=== PATIENT | female | born 1950 ===

== ENCOUNTER 2016-06-01 19:55 | Emergency (ER) | payer OTHER ==
[2016-06-01] MEDS ORDERED: hydrOXYzine HCL TAB* 25 MG PO ONE (20:50)
--- NOTE | 2016-06-01 20:56 | UC ---
Skin Complaint HPI - HPI Summary HPI Summary: patient arrived from out of town today. noticed a itchy spot on leg this morning. now she has elevated red spots on both legs, itchy. did use anti itch creaem with positive results. - History of Current Complaint Chief Complaint: UCSkin Time Seen by Provider: 06/01/16 20:43 Stated Complaint: RASH Hx Obtained From: Patient ?: No Onset/Duration: Sudden Onset, Lasting Days Skin Exposure Onset/Duration: Hours Ago Onset Severity: Moderate Current Severity: Moderate Location: Diffuse - both legs Character: Swelling, Pruritus, Redness, Raised Aggravating: Nothing Alleviating: OTC Creams/Salves Associated Signs & Symptoms: Positive: Negative - Allergy/Home Medications Allergies/Adverse Reactions: Allergies Allergy/AdvReac Type Severity Reaction Status Date / Time No Known Allergies Allergy Verified 06/01/16 20:30 Home Medications: Home Medications Alendronate (NF) [Fosamax (NF)] 1 tab PO WEEKLY 06/01/16 [History Confirmed ] Cholecalciferol [Vitamin D] 4,000 mg PO WEEKLY 06/01/16 [History Confirmed 06/01] Review of Systems Constitutional: Negative Skin: Rash Eyes: Negative ENT: Negative Respiratory: Negative Cardiovascular: Negative Gastrointestinal: Negative Genitourinary: Negative Motor: Negative Neurovascular: Negative Musculoskeletal: Negative Neurological: Negative Psychological: Negative All Other Systems Reviewed And Are Negative: Yes PMH/Surg Hx/FS Hx/Imm Hx Previously Healthy: Yes - Surgical History Surgical History: Yes Surgery Procedure, Year, and Place: Hysterectomy - Family History Known Family History: Positive: Hypertension - Social History Alcohol Use: Rare Substance Use Type: None Smoking Status (MU): Never Smoked Tobacco - Immunization History Most Recent Influenza Vaccination: Physical Exam Triage Information Reviewed: Yes Appearance: Well-Appearing, Well-Nourished, Pain Distress Vital Signs: Initial Vital Signs Temp 98.7 F 06/01/16 20:31 Pulse 75 06/01/16 20:31 Resp 18 06/01/16 20:31 BP 123/59 06/01/16 20:31 Pulse Ox 96 06/01/16 20:31 Vital Signs Reviewed: Yes Eye Exam: Normal Eyes: Positive: Conjunctiva Clear ENT Exam: Normal ENT: Positive: Normal ENT inspection, Hearing grossly normal, Pharynx normal, TMs normal Dental Exam: Normal Neck exam: Normal Neck: Positive: Supple, Nontender, No Lymphadenopathy Respiratory Exam: Normal Respiratory: Positive: Chest non-tender, Lungs clear, Normal breath sounds Cardiovascular Exam: Normal Cardiovascular: Positive: RRR, No Murmur, Pulses Normal Abdominal Exam: Normal Abdomen Description: Positive: Nontender, No Organomegaly, Soft Bowel Sounds: Positive: Present Musculoskeletal Exam: Normal Neurological Exam: Normal Psychological Exam: Normal Skin: Positive: rashes - red raised, pimply like rash on bilateral lower extremities and feet, a few varicosities noted. Course/Dx - Course Course Of Treatment: hx obtained, exam performed, meds reviewed, treated for contact dermatitis - Differential Diagnoses - Skin Complaint Differential Diagnoses: Allergic Reaction, Cellulitis, Contact Dermatitis, Medication; Adverse Reaction, Urticaria - Diagnoses Provider Diagnoses: contact dermatitis. pruritis. varicose veins Discharge - Discharge Plan Condition: Stable Disposition: HOME Prescriptions: predniSONE TAB* [Deltasone TAB*] 20 mg PO DAILY #18 tab Patient Education Materials: Contact Dermatitis (ED) Additional Instructions: take the atarax tonight for anti itch relief. Start the prednisone in the morning. FOllow up with your primary physician if symptoms do not fully resolve.
== END 2016-06-01 21:08 | disposition home or self-care (01) ==
LOC: UCEAST 19:55
DX: L25.9 Unspecified contact dermatitis, unspecified cause (principal); L29.9 Pruritus, unspecified; I83.93 Asymptomatic varicose veins of bilateral lower extremities
CPT/HCPCS: 99202; A9270-GY; G0463